=== PATIENT | male | born 1995 | race Asian ===

== ENCOUNTER 2017-10-16 12:11 | Emergency (ER) | payer OTHER, MEDICAID ==
[2017-10-16 13:09] VITALS: RESP 18; O2SAT 98
--- NOTE | 2017-10-16 14:34 | EDPHY ---
H & P HPI/ROS: Chief complaint: Left 4th finger laceration History of present illness: This is a 22-year-old male who presents to the emergency department for left 4th finger laceration. He cut the tip of the finger with a knife just prior to arrival. Mild pain, mild bleeding controlled with a dressing. He is still flex and extend the finger well. No report of paresthesias in the finger. No abnormal coolness. Immunizations up-to-date. Smoking Status: Former smoker Physical Exam: General: Alert, nontoxic Skin: The very tip of the finger is of oldest. This is a thin layer of skin. No exposure of bone under the skin. Musculoskeletal: Patient is flexing extending the finger in the DIP, PIP and MCP joint well Vascular: The very small skin flap itself is without blood flow. The rest of the finger is vascularly intact with good capillary refill. Neurological: Loss of sensation in the skin flap, the rest of the finger is neurologically intact Constitutional: Initial Vital Signs Temperature (C) 36.7 C 10/16/17 13:07 Heart Rate 82 10/16/17 13:07 Respiratory Rate 18 10/16/17 13:07 Blood Pressure 134/76 H 10/16/17 13:07 O2 Sat (%) 98 10/16/17 13:07 O2 Delivery Mode Room Air Allergies/Adverse Reactions: No Known Allergies Allergy (Unverified 10/16/17 13:07) Home Medications: Medication Instructions Recorded NK [No Known Home Meds] 10/16/17 MDM/Departure - MDM Imaging: I viewed and interpreted images myself Procedures: Procedure: Laceration repair. Verbal consent was obtained from the patient. The 0.5 cm flap laceration on the left 4th finger was anesthetized in the usual fashion. The wound was irrigated, draped and explored to its base with a gloved finger. There were no deep structures involved. No tendon injury was identified. The wound was repaired with 5 0 Prolene, 5 simple interrupted sutures. The wound repair was simple. The procedure was performed by myself. ED Course/Re-evaluation: Patient seen under the supervision of my secondary supervising physician Dr. Dewey Mckeon. Patient presents to the emergency depart for a cut to the tip of his finger. The skin flap itself has lack of neurovascular supply. However it is a small skin flap. This is tacked down as a biologic Band-Aid. I suspect it to heal from the bottom up. The rest the finger is neurovascularly intact. Patient is discharged home. Asked to follow up with a hand doctor for recheck. Return precautions are given. Patient voiced understanding and agreement with plan. Differential Diagnosis: Included but not limited to soft tissue injury, deep structure injury, foreign body contamination - Depart Disposition: Home, Routine, Self-Care Clinical Impression: Finger laceration Qualifiers: Encounter type: initial encounter Finger: ring finger Damage to nail status: without damage Foreign body presence: without foreign body Laterality: left Qualified Code(s): S61.215A - Laceration without foreign body of left ring finger without damage to nail, initial encounter Condition: Good Instructions: Care For Your Stitches (ED), Laceration (ED), Acute Wounds (ED) Additional Instructions: Follow-up with worker's compensation or hand doctor next week Stitches to be removed in 7-10 days If symptoms worsen or new symptoms develop return to the emergency room for recheck Referrals: Howard Bates MD [Primary Care Provider] - As per Instructions Jose Cat MD [Medical Doctor] - As per Instructions
[2017-10-16 14:45] VITALS: BP 133/79; PULSE 78; TEMP 97.9
== END 2017-10-16 15:01 | disposition home or self-care (01) ==
PROC: 0HQGXZZ Repair Left Hand Skin, External Approach (ICD-10-PCS; principal; 2017-10-16)
DX: S61.215A Laceration without foreign body of left ring finger without damage to nail, initial encounter (principal); Z87.891 Personal history of nicotine dependence; W26.0XXA Contact with knife, initial encounter